=== PATIENT | male | born 1955 | race Caucasian/White ===

== ENCOUNTER 2017-11-20 16:30 | Inpatient (IN) | payer MEDICAID ==
[~2017-11-20] VITALS: Ht 177.8 cm; Wt 65.3 kg
[2017-11-20] MEDS ORDERED: GABA-531 PO (17:01)
[2017-11-20] MEDS ORDERED: SERT50TA12 PO (17:01)
[2017-11-20 17:21] LABS: BASOPHILS % (AUTO) 0.8 % (0.0-2.0); EOSINOPHILS % (AUTO) 3.1 % (1.0-6.0); HEMATOCRIT 40.5 % (41-53); HEMOGLOBIN 14.3 g/dL (13.5-17.5); LYMPHOCYTES # (AUTO) 1.3 K/uL (1.0-4.8); LYMPHOCYTES % (AUTO) 20.1 % (22.0-44.0); MEAN CORPUSCULAR HEMOGLOBIN 31.2 pg (26.0-34.0); MEAN CORPUSCULAR HGB CONC 35.3 G/dL (31.0-37.0); MEAN CORPUSCULAR VOLUME 89 fL (80-100); MONOCYTES # (AUTO) 0.6 K/uL (0.1-1.0); MONOCYTES % (AUTO) 9.1 % (2.0-9.0); NEUTROPHILS # (AUTO) 4.2 K/uL (1.8-7.7); NEUTROPHILS % (AUTO) 66.9 % (40.0-70.0); PLATELET COUNT (AUTO) 178 K/uL (150-450); RED BLOOD CELL COUNT(AUTO) 4.57 MIL/uL (4.50-5.90); RED CELL DISTRIBUTION WIDTH 13.9 % (11.5-14.5)
[2017-11-20 17:29] LABS: ANION GAP 6 mmol/L (8-16); CALCIUM, TOTAL 8.9 mg/dL (8.8-10.5); CARBON DIOXIDE 29 mmol/L (22-29); CHLORIDE 102 mmol/L (98-107); CREATININE 1.14 mg/dL (0.60-1.30); GLOMERULAR FILTR. RATE CALC > 60 mL/min (>60); GLUCOSE,RANDOM 89 mg/dL (70-110); POTASSIUM 3.8 mmol/L (3.5-5.1); SODIUM SERUM 137 mmol/L (136-145); UREA NITROGEN, BLOOD 15 mg/dL (7-18)
[2017-11-20 17:35] LABS: ALANINE AMINOTRANSFERASE 30 U/L (12-78); ALBUMIN 3.7 g/dL (3.4-5.0); ALKALINE PHOSPHATASE 66 U/L (46-116); ASPARTATE AMINOTRANSFERASE 36 U/L (15-37); BILIRUBIN,TOTAL 0.7 mg/dL (0.1-1.0); TOTAL PROTEIN, SERUM 7.6 g/dL (6.4-8.2)
[2017-11-20 17:47] LABS: AMPHET/METH SCREEN,URINE NEGATIVE (NEGATIVE); BARBITURATE SCREEN, URINE NEGATIVE (NEGATIVE); BENZODIAZEPINES SCREEN,URINE NEGATIVE (NEGATIVE); CANNABINOID SCREEN,URINE NEGATIVE (NEGATIVE); COCAINE SCREEN,URINE NEGATIVE (NEGATIVE); METHADONE SCREEN, URINE NEGATIVE (NEGATIVE); OPIATE SCREEN,URINE NEGATIVE (NEGATIVE)
[2017-11-20 17:48] LABS: PHENCYCLIDINE SCREEN,URINE NEGATIVE (NEGATIVE)
[2017-11-20] MEDS ORDERED: LORazepam 2 MG TABLET PO PRN (22:15)
[2017-11-20] MEDS ORDERED: ZOLPIDEM TARTRATE 10 MG TABLET PO PRN (22:15)
[2017-11-20] MEDS ORDERED: HALOPERIDOL 5 MG TABLET PO PRN (22:15)
[2017-11-21 01:34] VITALS: BP 134/67
[2017-11-21 07:33] LABS: CHOL/HDL RATIO 2.3 (4.2-7.3)
[2017-11-21 10:27] VITALS: BP 129/59
[2017-11-21] MEDS ORDERED: HALOPERIDOL DECANOATE 50 MG/ML VIAL IM SCH (14:00)
[2017-11-21] MEDS: GABAPENTIN 300 MG CAPSULE PO SCH (16:50)
[2017-11-21 18:43] VITALS: BP 115/72
[2017-11-21] MEDS: SERTRALINE HCL 50 MG TABLET PO SCH (20:16)
[2017-11-22 09:00] VITALS: BP 103/56
[2017-11-22] MEDS: GABAPENTIN 300 MG CAPSULE PO SCH ×3 (10:27→17:45)
[2017-11-22 17:13] VITALS: BP 120/74
[2017-11-22] MEDS: SERTRALINE HCL 50 MG TABLET PO SCH (20:04)
[2017-11-23] MEDS: GABAPENTIN 300 MG CAPSULE PO SCH ×3 (08:59→17:15)
[2017-11-23 10:09] VITALS: BP 138/66
[2017-11-23 16:48] VITALS: BP 130/78
[2017-11-23] MEDS: SERTRALINE HCL 50 MG TABLET PO SCH (20:46)
[2017-11-24] MEDS: GABAPENTIN 300 MG CAPSULE PO SCH ×2 (09:10→13:01)
[2017-11-24 10:02] VITALS: BP 116/60
[2017-11-24] MEDS ORDERED: HALOPERIDOL DECANOATE 50 MG/ML VIAL IM SCH (10:45)
[2017-11-24] MEDS ORDERED: HALO50VI4 IM (11:57)
== END 2017-11-24 14:40 | disposition home or self-care (01) | DRG 885 ==
LOC: EMS 16:31 → 3EI 23:12
PROVIDERS: ADMIT Psychiatry & Neurology Child & Adolescent Psychiatry; ATTEND Psychiatry & Neurology Child & Adolescent Psychiatry
DX: F25.9 Schizoaffective disorder, unspecified (principal); R45.851 Suicidal ideations; B19.20 Unspecified viral hepatitis C without hepatic coma; F17.210 Nicotine dependence, cigarettes, uncomplicated; F32.9 Major depressive disorder, single episode, unspecified; J45.909 Unspecified asthma, uncomplicated; Z65.3 Problems related to other legal circumstances; Z81.8 Family history of other mental and behavioral disorders; Z82.49 Family history of ischemic heart disease and other diseases of the circulatory system; Z86.61 Personal history of infections of the central nervous system; Z91.5 Personal history of self-harm; Z88.0 Allergy status to penicillin
CPT/HCPCS: 99285; 99406; G0480; J1631

== ENCOUNTER 2018-02-07 18:21 | Emergency (ER) | payer MEDICAID ==
[~2018-02-07] VITALS: Ht 177.8 cm; Wt 68.2 kg
[~2018-02-07 18:21] MED LIST: GABA-531 PO; HALO50VI4 IM; SERT50TA12 PO
[2018-02-07] MEDS ORDERED: ONDANSETRON HCL 4 MG/2 ML VIAL IVP ONE (18:45)
[2018-02-07] MEDS ORDERED: SODIUM CHLORIDE 0.9% 100 ML ONE (18:45)
[2018-02-07] MEDS ORDERED: SODIUM CHLORIDE 0.9% 1,000 ML IV ONE (18:45)
[2018-02-07] MEDS ORDERED: IOVERSOL 320 MG/ML 100 ML VIAL ONE (18:45)
[2018-02-07] MEDS ORDERED: PB/HYOSCY/ATR/SCOP/LIDO/MAALOX 55 ML BOTTLE PO ONE (19:00)
[2018-02-07 19:34] LABS: BASOPHILS % (AUTO) 0.8 % (0.0-2.0); EOSINOPHILS % (AUTO) 4.4 % (1.0-6.0); HEMATOCRIT 42.5 % (41-53); HEMOGLOBIN 14.9 g/dL (13.5-17.5); LYMPHOCYTES # (AUTO) 1.7 K/uL (1.0-4.8); LYMPHOCYTES % (AUTO) 22.6 % (22.0-44.0); MEAN CORPUSCULAR HEMOGLOBIN 31.3 pg (26.0-34.0); MEAN CORPUSCULAR VOLUME 90 fL (80-100); MONOCYTES # (AUTO) 0.7 K/uL (0.1-1.0); MONOCYTES % (AUTO) 9.3 % (2.0-9.0); NEUTROPHILS # (AUTO) 4.7 K/uL (1.8-7.7); NEUTROPHILS % (AUTO) 62.9 % (40.0-70.0); PLATELET COUNT (AUTO) 209 K/uL (150-450); RED BLOOD CELL COUNT(AUTO) 4.75 MIL/uL (4.50-5.90); RED CELL DISTRIBUTION WIDTH 14.8 % (11.5-14.5)
[2018-02-07 19:43] LABS: CALCIUM, TOTAL 9.2 mg/dL (8.8-10.5); CREATININE 1.21 mg/dL (0.60-1.30); POTASSIUM 3.7 mmol/L (3.5-5.1)
[2018-02-07 19:48] LABS: ALBUMIN 3.6 g/dL (3.4-5.0); BILIRUBIN,TOTAL 0.6 mg/dL (0.1-1.0); TOTAL PROTEIN, SERUM 7.4 g/dL (6.4-8.2)
[2018-02-07 20:01] VITALS: BP 112/63
== END 2018-02-07 21:34 | disposition home or self-care (01) ==
LOC: EMS 18:23
DX: R10.13 Epigastric pain (principal); R19.7 Diarrhea, unspecified; R11.10 Vomiting, unspecified; J45.909 Unspecified asthma, uncomplicated; F31.9 Bipolar disorder, unspecified; F20.9 Schizophrenia, unspecified; G89.29 Other chronic pain; F17.210 Nicotine dependence, cigarettes, uncomplicated; Z88.0 Allergy status to penicillin
CPT/HCPCS: 36415; 74177; 80053; 83690; 85025; 93005; 96361; 96374; 99285; J2405; J7030; J7050; Q9967; Z7610

== ENCOUNTER 2021-12-19 09:53 | Emergency (ER) | payer MEDICARE, OTHER ==
[~2021-12-19] VITALS: Ht 172.7 cm; Wt 68.4 kg
[~2021-12-19 09:53] MED LIST changes: +GABA-1181 PO; -GABA-531 PO; +HALO50VI29 IM; -HALO50VI4 IM; +SERT-158 PO; -SERT50TA12 PO
[2021-12-19 11:02] LABS: COVID AG,FIA SOURCE NASOPHARYNGEAL
[2021-12-19 11:23] LABS: BASOPHILS % (AUTO) 0.3 % (0.0-2.0); EOSINOPHILS % (AUTO) 0.2 % (1.0-6.0); HEMOGLOBIN 13.6 g/dL (13.5-17.5); LYMPHOCYTES # (AUTO) 0.9 K/uL (1.0-4.8); LYMPHOCYTES % (AUTO) 5.2 % (22.0-44.0); MEAN CORPUSCULAR HEMOGLOBIN 29.4 pg (26.0-34.0); MEAN CORPUSCULAR HGB CONC 33.2 G/dL (31.0-37.0); MEAN CORPUSCULAR VOLUME 88 fL (80-100); MONOCYTES # (AUTO) 0.8 K/uL (0.1-1.0); MONOCYTES % (AUTO) 4.6 % (2.0-9.0); NEUTROPHILS # (AUTO) 15.2 K/uL (1.8-7.7); PLATELET COUNT (AUTO) 247 K/uL (150-450); RED BLOOD CELL COUNT(AUTO) 4.63 MIL/uL (4.50-5.90); RED CELL DISTRIBUTION WIDTH 15.7 % (11.5-14.5)
[2021-12-19 11:26] LABS: NEUTROPHILS % (AUTO) 89.7 % (40.0-70.0)
[2021-12-19 11:37] LABS: PROTHROMBIN TIME 10.9 SEC (9.4-11.6)
[2021-12-19 11:42] LABS: ANION GAP 8 mmol/L (8-16); CALCIUM, TOTAL 9.3 mg/dL (8.8-10.5); CARBON DIOXIDE 28 mmol/L (22-29); CHLORIDE 100 mmol/L (98-107); CREATININE 0.82 mg/dL (0.60-1.30); GLOMERULAR FILTR. RATE CALC > 60 mL/min (>60); GLUCOSE,RANDOM 124 mg/dL (70-110); POTASSIUM 3.9 mmol/L (3.5-5.1); SODIUM SERUM 136 mmol/L (136-145); UREA NITROGEN, BLOOD 12 mg/dL (7-18)
[2021-12-19 11:46] LABS: B-TYPE NATRIURETIC PEPTIDE 22 pg/mL (0-100)
[2021-12-19 11:53] LABS: INFLUENZA TYPE A NEGATIVE FOR TYPE A (NEGATIVE); INFLUENZA TYPE B NEGATIVE FOR TYPE B (NEGATIVE)
[2021-12-19 11:57] LABS: AMMONIA < 10 umol/L (11-32)
[2021-12-19] MEDS ORDERED: LEVOFLOXACIN 750 MG/D5% WATER 150 ML IV ONE (12:15)
[2021-12-19 12:18] LABS: ALANINE AMINOTRANSFERASE 32 U/L (12-78); ALBUMIN 3.5 g/dL (3.4-5.0); ALKALINE PHOSPHATASE 118 U/L (46-116); ASPARTATE AMINOTRANSFERASE 41 U/L (15-37); BILIRUBIN,TOTAL 0.6 mg/dL (0.1-1.0); CREATINE KINASE, TOTAL ONLY 353 U/L (39-308); TOTAL PROTEIN, SERUM 7.7 g/dL (6.4-8.2)
[2021-12-19 13:59] VITALS: BP 122/80
== END 2021-12-19 14:33 | disposition short-term general hospital (02) ==
LOC: EMS 09:56
DX: J18.9 Pneumonia, unspecified organism (principal); R53.83 Other fatigue; J45.909 Unspecified asthma, uncomplicated; F31.9 Bipolar disorder, unspecified; F20.9 Schizophrenia, unspecified; F17.210 Nicotine dependence, cigarettes, uncomplicated; Z86.19 Personal history of other infectious and parasitic diseases; Z87.39 Personal history of other diseases of the musculoskeletal system and connective tissue; Z98.890 Other specified postprocedural states; Z88.0 Allergy status to penicillin; Z20.822 Contact with and (suspected) exposure to COVID-19
CPT/HCPCS: 36415; 70450; 71045; 80053; 82140; 82550; 83880; 84484; 85025; 85610; 85730; 87426; 87804; 93005; 96365; 99285; G0480; J1956